=== PATIENT | female | born 1990 | race Caucasian/White ===

== ENCOUNTER 2016-02-26 03:56 | Inpatient (IN) ==
[2016-02-26] MEDS ORDERED: Metoclopramide 10 MG/2 ML VIAL IVP PRN (04:17)
[2016-02-26] MEDS ORDERED: Naloxone 0.4 MG/ML INJ IVP PRN (04:17)
[2016-02-26] MEDS ORDERED: Famotidine 20 MG/2 ML VIAL IVP PRN (04:17)
[2016-02-26] MEDS ORDERED: Ondansetron 4 MG/2 ML VIAL IVP PRN (04:17)
[2016-02-26 05:01] LABS: Basophils % 0.3 %; Eosinophils # 0.2 K/mcL (0.0-0.6); Eosinophils % 1.4 %; Hemoglobin 12.8 g/dL (11.5-15.4); Immature Granulocytes % 0.4 % (0-4); Lymphocytes % 26.5 %; Mean Corpuscular HGB Conc 35.6 g/dL (31.6-35.5); Mean Corpuscular Volume 95.5 fL (83.0-100.0); Monocytes # 0.6 K/mcL (0.0-1.3); Monocytes % 4.9 %; Neutrophils # 7.5 K/mcL (1.6-8.9); Platelet Count 148 K/mcL (140-400); Red Blood Count 3.77 M/mcL (3.82-4.97); Red Cell Distribution Width 12.9 % (11.5-14.5); Segmented Neutrophils % 66.5 %
[2016-02-26] MEDS ORDERED: miSOPROStol 25 MCG TABLET VG SCH (05:30)
[2016-02-26] MEDS ORDERED: *HR* Ropivacaine/PF 0.2% 10 ML AMPUL EP ONE (07:58)
[2016-02-26] MEDS ORDERED: *HR* FentaNYL (PF) 100 MCG/2 ML VIAL EP ONE (07:58)
[2016-02-26] MEDS ORDERED: EPHEDrine 50 MG/ML VIAL IVP PRN (07:58)
[2016-02-26] MEDS ORDERED: Ringers Solution, Lactated 500 ML IVC ONE (07:58)
[2016-02-26] MEDS ORDERED: Epidural Premix (fent/bupiv) 110 ML EP SCH (08:00)
--- NOTE | 2016-02-26 08:00 | Anesthesia Evaluation PreOp ---
Date of Encounter: 02/26/16 Time of Encounter: 07:55 - Past History Planned Operation: Labor Epidural Cardiac History: Denies any Significant Hx Pulmonary History: Denies Any Significant HX GEAR HOBBER History: Denies Any Significant HX, Other (Scoliosis) Other Medical History: Denies Any Significant HX Anesthesia History: No Prior Anesthetic Complications : Yes Alcohol Use: none Drug use: marijuana Medications and Allergies Plm818/Iron Fumarate/FA/Dss [ 19 Tablet] 1 tab PO DAILY 02/21/16 [ History] Allergies Penicillins Allergy (Verified 02/21/16 19:24) Hives - Meds/Allergy Pre-op Review Medications Reviewed: Yes Allergies Reviewed: Yes Beta Blockers on Current Med List: No Anesthesia Results - Labs 02/26/16 04:55 Anesthesia Exam Height: 1.63m Weight: 76.5kg Pain Scale: 6 Pain Scale Used: Numeric (1 - 10) - HEENT Pupil (Motor): Pupils equal Mallampati: II Teeth: Normal Oral Opening: Greater than 3 - GEAR HOBBER LOC: Oriented GEAR HOBBER Motor: Normal RUE, Normal LUE, Normal RLE, Normal LLE, Normal Face GEAR HOBBER Sensory: Normal: RUE, LUE, RLE, LLE, Face - Cardiac Rhythm: Regular Murmur: None JVD: No Carotid Bruit: No - Pulmonary Breath Sounds: bilateral Clear Respiratory Effort: Symmetrical Anesthesia Assess/Plan ASA Score: 2 Modified Andrew Scale for Level of Consciousness: Cooperative, oriented, and tranquil Anesthetic Plan: Regional Monitoring Plan: Standard Monitors
[2016-02-26] MEDS ORDERED: *HR* Ropivacaine/PF 0.2% 10 ML AMPUL ONE ×4 (08:01→19:53)
[2016-02-26] MEDS ORDERED: Epidural Premix (fent/bupiv) 110 ML EP ONE ×2 (08:01→15:30)
[2016-02-26] MEDS ORDERED: *HR* FentaNYL (PF) 100 MCG/2 ML VIAL ONE ×4 (08:01→19:53)
[2016-02-26] MEDS: Ringers Solution, Lactated 1,000 ML IVC SCH ×2 (08:02→16:13)
--- NOTE | 2016-02-26 08:59 | Anesthesia Procedures ---
Date of Encounter: 02/26/16 Time of Encounter: 08:04 Procedures: Anesthesia - Epidural/Spinal Patient ID/Chart reviewed: Yes Patient examined: Yes OB Eval: Gestational age: 39.1 OB Eval: : 1 OB Eval: Hx Para: 0 OB Eval: Contractions: Non-stressed pattern Consent Obtained: Yes Supplemental Oxygen: None/Room Air Site Prep: Aseptic Technique, Sterile prep and drape, 0.5% Chlorhexidine/Alcohol Patient position: upright Local Anesthetic: Lidocaine 1% Amount of Local Anesthetic used: 2 Touhy Needle Gauge: 18 Touhy Needle Depth (cm): 7 Catheter Depth at Skin (cm): 12 Test Dose (1.5% Lido + Epi): Volume given (mls): 4 Test Dose Result: Negative Loading Dose: Fentanyl (mcg): 100 Loading Dose: Other: Ropivacaine 0.2% 10mL Loading Dose Administered: Thru Catheter Infusion Med: 0.125% Bupivacaine w/ 2 mcg/ml Fentanyl Infusion Rate (mls/hr): 14 (Bolus 4mL q15min; max 3/hr) Catheter Secured in Place: Tegaderm, Tape Interspace Used: L3-L4 Loss of Resistance (TERRY): Yes Blood: No CSF: No Paresthesia: No Procedure: x1 attempt. Catheter without difficulty. Patient tolerated procedure well. Vitals + FHT's: VSS and FHR stable throughout procedure. See nursing documentation.
--- NOTE | 2016-02-26 09:18 | OB/GYN History & Physical ---
Date of Encounter: 02/26/16 Time of Encounter: 09:16 Assessment and Plan (1) Elective induction of labor planned Current visit: Yes Status: Resolved cytotec given @ 0530hrs, will AROM and allow labor to progress, pitocin ok if needed, epidural ok, cont monitoring strip History of Present Illness HPI: Ms. Ewing is a 25 year old female @ 39+0 weeks who presented as an elective IOL. No LOF, VB or ctxs, feels good FM, GBS neg. Past Med Surg Social Fam HX - Past Medical History Medical history: no medical history Psychiatric history: no psych history - Social History Smoking Status: Current every day smoker Packs per day: 5 Smokeless Tobacco Status: No Alcohol use: none Drug use: marijuana - Family History Mother Adopted: No Family Member Ethnicity: Non- Living Status: Still Living Hx Family Cardiac Disorders: No Hx Family Respiratory Disorders: No Hx Family Cancer: No Hx Family GI Disorders: No Hx Family Genitourinary Disorders: No Hx Family Endocrine Disorder: No Hx Family Musculoskeletal Disorders: No Hx Family Neuromuscular Disorders: No Hx Family Neurologic Disorders: No Hx Family HEENT Disorders: No Hx Family Autoimmune Disorders: No Hx Family Reproductive Disorders: No Hx Family Psychosocial Disorders: No Hx Family Medical Disorders: No Obstetrical History - Pregnancies : 1 Medications and Allergies Hgm990/Iron Fumarate/FA/Dss [ 19 Tablet] 1 tab PO DAILY 02/21/16 [ History] Allergies Penicillins Allergy (Verified 02/21/16 19:24) Hives Review of System OB All systems PM: reviewed and no additional remarkable complaints except as stated Exam - Constitutional Constitutional: well developed - HEENT HEENT: PERRL - Neck Neck exam: normal inspection - Lungs Respiratory exam: CTAB - Cardiovascular Cardiovascular exam: RRR - Abdomen Abdomen: Present: gravid - Extremities Extremities exam: warm - Cervix Dilation: 4 Effacement: 70 Station: -2 Results Result Diagrams: 02/26/16 04:55 Abnormal lab results WBC 11.2 K/mcL (4.3-11.1) H 02/26/16 04:55 RBC 3.77 M/mcL (3.82-4.97) L 02/26/16 04:55 MCH 34.0 pg (28.0-33.3) H 02/26/16 04:55 MCHC 35.6 g/dL (31.6-35.5) H 02/26/16 04:55 All other labs normal. - VTE Reasons for not Prescribing Prophylaxis: Treatment not Indicated - Low risk for VTE
[2016-02-26] MEDS ORDERED: Oxytocin 20 units/ LR 1000 mL 20 UNIT/1,000 ML BAG IVC SCH (10:42)
--- NOTE | 2016-02-26 13:22 | OB Labor Progress Note ---
Date of Encounter: 02/26/16 Time of Encounter: 13:14 Labor Progress Note - Subjective Subjective: patient comfortable - Vital Signs Vital Signs: VSS - Cervix Cervix: 6-7cm - Heart Tones Heart Tones: FHT CAT 1 - [place]: Q2 - Plan Plan: cont to allow labor to progress, cont monitoring strip, Anticipate
--- NOTE | 2016-02-26 16:09 | OB Labor Progress Note ---
Date of Encounter: 02/26/16 Time of Encounter: 16:08 Labor Progress Note - Subjective Subjective: patient continues to do well - Vital Signs Vital Signs: VSS - Cervix Cervix: 7-8cm - Heart Tones Heart Tones: FHT CAT 1 - [place]: Q1-2 - Plan Plan: allow to progress, cont monitoring tracing
--- NOTE | 2016-02-26 17:14 | OB Labor Progress Note ---
Date of Encounter: 02/26/16 Time of Encounter: 17:12 Labor Progress Note - Subjective Subjective: patient doing well, AROM'ed - Vital Signs Vital Signs: VSS - Cervix Cervix: 8cm/0 station - Heart Tones Heart Tones: 125/mod carly/+accels, no decels - [place]: Q1-2 - Plan Plan: allow to labor down, cont monitoring strip
[2016-02-26] MEDS ORDERED: Lidocaine 1% 20 ML MDV ONE (19:16)
--- NOTE | 2016-02-26 22:28 | OB/GYN Procedure Note ---
Delivery - Delivery Date: 02/26/16 Provider: Manuelito Márquez Intrapartum events: none Delivery induction: oxytocin, misoprostol Delivery augmentation: rupture of membranes Delivery monitor: external FHT Anesthesia: epidural Estimated Blood Loss: 200 - Repair Episiotomy: none Laceration Description: Periurethral - Complications Delivery complications: none - Disposition Mom disposition: stable in LDR [place] disposition: taken to nursery - Comments Comments: 25 y/o @ 39+1 weeks delivered a viable male infant via VAVD 2/2 maternal exhaustion. Kiwi vacuum was used, station was +3 , no pop offs, infant delivered ROHINI @ 2156, 3 VC. Placenta delivered @2205. APGARs 8/9, EBL 200. Periurethral tears repaired with 3-0 vicryl. Mother and stable.
[2016-02-27] MEDS ORDERED: Rho Immune Globulin 1,500 UNIT SYRINGE IM PRN (00:53)
[2016-02-27] MEDS ORDERED: Acetaminophen 325 MG TABLET PO PRN (00:53)
[2016-02-27] MEDS ORDERED: Oxytocin 20 units/ LR 1000 mL 20 UNIT/1,000 ML BAG IV SCH (00:53)
[2016-02-27] MEDS ORDERED: Measles/Mumps/Rubella Vacc 0.5 ML VIAL SQ PRN (00:53)
[2016-02-27] MEDS ORDERED: Ibuprofen 600 MG TABLET PO PRN (00:53)
[2016-02-27 05:17] LABS: Basophils % 0.2 %; Eosinophils % 0.2 %; Hematocrit 31.8 % (35.3-44.9); Hemoglobin 11.3 g/dL (11.5-15.4); Immature Granulocytes % 0.4 % (0-4); Lymphocytes # 1.8 K/mcL (0.6-4.6); Lymphocytes % 13.2 %; Mean Corpuscular HGB Conc 35.5 g/dL (31.6-35.5); Mean Corpuscular Volume 95.8 fL (83.0-100.0); Mean Platelet Volume 11.5 fL (9.4-12.4); Monocytes # 0.6 K/mcL (0.0-1.3); Monocytes % 4.3 %; Neutrophils # 10.8 K/mcL (1.6-8.9); Platelet Count 143 K/mcL (140-400); Red Blood Count 3.32 M/mcL (3.82-4.97); Red Cell Distribution Width 12.7 % (11.5-14.5); Segmented Neutrophils % 81.7 %
--- NOTE | 2016-02-27 08:24 | Discharge Summary ---
Date of Encounter: 02/27/16 Time of Encounter: 08:21 - Discharge Diagnosis (1) Vaginal delivery Priority: Primary Status: Acute Comments: Continue routine care discharge to guest today-infant 3 day hold (2) Breast feeding status of mother Priority: Secondary Status: Acute Comments: support - Discharge Medications Prescriptions: Ibuprofen [Motrin] 600 mg PO Q6HR PRN #60 tablet PRN Reason: Cramping Breast Pump [BREAST PUMP] 1 each .ROUTE AD #1 each Home Medications: Gup744/Iron Fumarate/FA/Dss [ 19 Tablet] 1 tab PO DAILY 02/21/16 [ History] Breast Pump [BREAST PUMP] 1 each .ROUTE AD #1 each 02/27/16 [Rx] Ibuprofen [Motrin] 600 mg PO Q6HR PRN #60 tablet 02/27/16 [Rx] Allergies/Adverse Reactions: Allergies Penicillins Allergy (Verified 02/21/16 19:24) Hives Data Procedures and tests throughout hospitalization: Laboratory Tests 02/26/16 02/27/16 04:55 04:47 WBC 11.2 H 13.3 H RBC 3.77 L 3.32 L Hgb 12.8 11.3 L D Hct 36.0 31.8 L MCV 95.5 95.8 MCH 34.0 H 34.0 H MCHC 35.6 H 35.5 RDW 12.9 12.7 Plt Count 148 143 MPV 11.0 11.5 Immature Gran % 0.4 0.4 Seg Neutrophils % 66.5 81.7 Lymphocytes % 26.5 13.2 Monocytes % 4.9 4.3 Eosinophils % 1.4 0.2 Basophils % 0.3 0.2 Neutrophils # 7.5 10.8 H Lymphocytes # 3.0 1.8 Monocytes # 0.6 0.6 Eosinophils # 0.2 0.0 Basophils # 0.0 0.0 Labs on day of discharge: Labs from last 24 hours 02/27/16 04:47 WBC 13.3 H RBC 3.32 L Hgb 11.3 L D Hct 31.8 L MCV 95.8 MCH 34.0 H MCHC 35.5 RDW 12.7 Plt Count 143 MPV 11.5 Immature Gran % 0.4 Seg Neutrophils % 81.7 Lymphocytes % 13.2 Monocytes % 4.3 Eosinophils % 0.2 Basophils % 0.2 Neutrophils # 10.8 H Lymphocytes # 1.8 Monocytes # 0.6 Eosinophils # 0.0 Basophils # 0.0 Date of admission: 02/26/16 03:56 Primary care physician: PCP LIZZIE Consults: 02/27/16 00:53 Consult to Bench Assembly Inspector [CONS] Routine Comment: Vaginal delivery, consult needed Consult to Client Service And Consulting Manager [CONS] Routine Reason for SW Consult: marijuana use during Discharging clinician: Ashley Amaro Anticipated date of discharge: 02/27/16 - Patient Status Disposition: Home, Self-Care Condition: Good Functional capacity at discharge: independent ambulation - Discharge Instructions Follow Up With: LIZZIE,PCP [Primary Care Provider] - Casey Hoover MD [Partnered Physician] - - Diet and Activity Activity: increase activity as tolerated Diet: regular diet Hospital Course Delivery: Episiotomy: none Other procedures: none complications: none Discharge diagnosis: IUP at term delivered baby: male (breast feeding) Time Attestation: Total time spent providing and/or coordinating discharge services: Time Spent: Less than 30 minutes Exam - Constitutional Vitals: Temp Pulse Resp BP Pulse Ox 98.3 F 93 78 117/79 16 L 02/27/16 03:55 02/27/16 01:30 02/27/16 03:55 02/27/16 03:55 02/27/16 03:55 General appearance IM: A&O X 3, pleasant, answers questions appropriately - Respiratory Respiratory exam: Present: CTAB - Cardiovascular Cardiovascular exam IM: Present: RRR, +S1, +S2 - GI/Abdominal GI/Abdominal exam IM: normal bowel sounds - Uterine Tone: Firm Uterus Position: 1 Finger Below Umbilicus, Midline - Extremities Exam Extremities exam IM: Present: normal capillary refill, normal inspection - Neurological Exam Neurological exam: oriented X3, reflexes normal
[2016-02-27 08:56] VITALS: BP 106/70
[2016-02-27] MEDS ORDERED: Prenatal Vit/FA 1 EACH TABLET PO SCH (09:00)
== END 2016-02-27 11:20 | disposition home or self-care (01) | DRG 560 ==
LOC: 1NENULAB 03:56 → 1NENUOBS 02-27 00:33
PROVIDERS: ADMIT Student in an Organized Health Care Education/Training Program; ATTEND Student in an Organized Health Care Education/Training Program

== ENCOUNTER → 2017-06-03 11:30 | Observation (INO) ==
[2017-06-03 08:38] LABS: Amphetamine Screen,Urine Negative ng/mL (Cutoff=1000); Barbiturate Screen,Urine Negative ng/mL (Cutoff=200); Benzodiazepines Screen,Urine Negative ng/mL (Cutoff=200); Cannabinoid Screen,Urine Positive ng/mL (Cutoff = 50); Cocaine Screen,Urine Negative ng/mL (Cutoff= 300); Opiate Screen,Urine Negative ng/mL (Cutoff=300); Phencyclidine Screen,Urine Negative ng/mL (Cutoff=25)
[2017-06-03 09:06] LABS: Basophils % 0.3 %; Eosinophils # 0.1 K/mcL (0.0-0.6); Eosinophils % 0.5 %; Hematocrit 38.1 % (35.3-44.9); Hemoglobin 13.6 g/dL (11.5-15.4); Immature Granulocytes % 0.7 % (0-4); Lymphocytes # 2.1 K/mcL (0.6-4.6); Mean Corpuscular HGB Conc 35.7 g/dL (31.6-35.5); Mean Corpuscular Hemoglobin 34.5 pg (28.0-33.3); Mean Corpuscular Volume 96.7 fL (83.0-100.0); Mean Platelet Volume 11.3 fL (9.4-12.4); Monocytes # 0.5 K/mcL (0.0-1.3); Monocytes % 3.4 %; Neutrophils # 12.1 K/mcL (1.6-8.9); Platelet Count 174 K/mcL (140-400); Red Blood Count 3.94 M/mcL (3.82-4.97); Red Cell Distribution Width 13.3 % (11.5-14.5); Segmented Neutrophils % 81.1 %
--- NOTE | 2017-06-03 10:49 | OB/GYN Progress Note ---
Date of Encounter: 06/03/17 Time of Encounter: 10:47 - Assessment and Plan (1) 37 weeks gestation of Current Visit: Yes Status: Acute (2) Uterine contractions Current Visit: Yes Status: Acute Pt with stong contractions on admission. given nubain. Serial cervical exams remain unchanged. Pt requesting to be discharged home. Discharged home with when to return precautions. Subjective - Subjective Interval history: 37+0 presents to [facility] for labor evaluation. Contractions started earlier this AM and became more intense. Reports good movement, denies vaginal bleeding or leaking of fluid. Antepartum ROS: movement normal, contractions, no loss of fluid, no vaginal bleeding Objective - Vital Signs Vital Signs: Intake and Output 06/02/17 06/03/17 06/03/17 23:59 07:59 15:59 Other: Weight 73.5 kg Patient Weight 06/03/17 23:59 Weight 73.5 kg - Exam FHR: auscultation normal FHR comments: Baseline 120 Abdomen: Present: normal appearance, soft, gravid Cervical dilation: 590/0 - Labs Labs: Abnormal lab results WBC 14.9 K/mcL (4.3-11.1) H 06/03/17 08:33 MCH 34.5 pg (28.0-33.3) H 06/03/17 08:33 MCHC 35.7 g/dL (31.6-35.5) H 06/03/17 08:33 Neutrophils # 12.1 K/mcL (1.6-8.9) H 06/03/17 08:33 U Marijuana (THC) Screen Positive ng/mL (Cutoff = 50) H 06/03/17 07:30
[~2017-06-03 11:30] MED LIST: *HR* Nalbuphine 10 MG/ML AMPUL IV PRN
== END | disposition home or self-care (01) ==
LOC: 1NENULAB
PROVIDERS: ADMIT Obstetrics & Gynecology; ATTEND Obstetrics & Gynecology

== ENCOUNTER 2017-06-03 19:55 | Inpatient (IN) ==
--- NOTE | 2017-06-03 19:07 | Anesthesia Evaluation PreOp ---
Date of Encounter: 06/03/17 Time of Encounter: 19:04 - Past History Planned Operation: vaginal del, 37wk labor Cardiac History: Denies any Significant Hx Pulmonary History: Smoker SAP FUNCTIONAL ANALYST History: Denies Any Significant HX Other Medical History: Other (scoliosis no radiculopathy reported.) Anesthesia History: No Prior Anesthetic Complications, Past Anesthesia Alcohol Use: none Drug use: none Medications and Allergies Tyf432/Iron Fumarate/FA/Dss [ 19 Tablet] 1 tab PO DAILY 02/21/16 [ History] 3 Allergy/AdvReac Type Severity Reaction Status Date / Time Penicillins Allergy Hives Verified 01/30/17 12:49 Anesthesia Exam - HEENT Pupil (Motor): Pupils equal Mallampati: II Teeth: Normal Oral Opening: Greater than 3 - SAP FUNCTIONAL ANALYST LOC: Oriented SAP FUNCTIONAL ANALYST Motor: Normal RUE, Normal LUE, Normal RLE, Normal LLE, Normal Face SAP FUNCTIONAL ANALYST Sensory: Normal: RUE, LUE, RLE, LLE, Face - Cardiac Rhythm: Regular Murmur: None - Pulmonary Breath Sounds: bilateral Clear Respiratory Effort: Symmetrical Anesthesia Assess/Plan ASA Score: 2 Modified [place] Scale for Level of Consciousness: Cooperative, oriented, and tranquil Anesthetic Plan: General, Regional Monitoring Plan: Standard Monitors Recovery Plan: PACU
[~2017-06-03 19:55] MED LIST changes: -*HR* Nalbuphine 10 MG/ML AMPUL IV PRN; +EPHEDrine 50 MG/ML VIAL IVP PRN; +Epidural Premix (fent/bupiv) 110 ML EP ONE; +Epidural Premix (fent/bupiv) 110 ML EP SCH; +Famotidine 20 MG/2 ML VIAL IVP PRN; +Lidocaine 1% 20 ML MDV INFILT PRN; +Naloxone 0.4 MG/ML INJ IVP PRN; +Ringers Solution, Lactated 2,000 ML ONE
[2017-06-03] MEDS ORDERED: Oxytocin 20 units/ LR 1000 mL 20 UNIT/1,000 ML BAG IVC ONE (19:56)
[2017-06-03] MEDS ORDERED: Ringers Solution, Lactated 1,000 ML IVC SCH (20:00)
--- NOTE | 2017-06-03 20:13 | OB/GYN History & Physical ---
Date of Encounter: 06/03/17 Time of Encounter: 20:03 Assessment and Plan (1) Active labor Current visit: Yes Status: Acute Admit to labor and delivery Vancomycin for GBS unknown Nubain and epidural as desired Anticipate (2) 37 weeks gestation of Current visit: No Status: Acute History of Present Illness HPI: Ms. August is a 27 year old female 37+0 weeks gestation presents to triage with complaints of contractions. Patient was seen in triage earlier this afternoon in the discharged home. Patient has returned stating that contractions have increased. Reports good movement, denies vaginal bleeding or leaking of fluid. located by velamentous cord insertion. Labs: O+, rubella and varicella immune, GBS unknown, all other serologies negative Past Med Surg Social Fam HX - Past Medical History Medical history: no medical history Psychiatric history: no psych history - Past Surgical History Surgical History: other - Social History Smoking Status: Current every day smoker Smokeless Tobacco Status: No Alcohol use: none Drug use: none - Family History Mother Adopted: No Family Member Ethnicity: Non- Living Status: Still Living Hx Family Cardiac Disorders: No Hx Family Respiratory Disorders: No Hx Family Cancer: No Hx Family GI Disorders: No Hx Family Genitourinary Disorders: No Hx Family Endocrine Disorder: No Hx Family Musculoskeletal Disorders: No Hx Family Neuromuscular Disorders: No Hx Family Neurologic Disorders: No Hx Family HEENT Disorders: No Hx Family Autoimmune Disorders: No Hx Family Reproductive Disorders: No Hx Family Psychosocial Disorders: No Hx Family Medical Disorders: No Obstetrical History - Pregnancies : 2 Para: 1 Term: 1 : 0 Ab's: 0 Livin Medications and Allergies Ven520/Iron Fumarate/FA/Dss [ 19 Tablet] 1 tab PO DAILY 02/21/16 [ History] 3 Allergy/AdvReac Type Severity Reaction Status Date / Time Penicillins Allergy Hives Verified 01/30/17 12:49 Exam - Constitutional Constitutional: well developed, well nourished, no acute distress, average body habitus - Neck Neck exam: full ROM - Lungs Respiratory exam: CTAB - Cardiovascular Cardiovascular exam: RRR - Abdomen Abdomen: Present: gravid, non tender - Vagina Vagina: Present: normal moisture - Cervix Dilation: 7 (PER rn) - Uterus Uterus exam: Present: normal size, normal contour Results All other labs normal. - VTE Reasons for not Prescribing Prophylaxis: Treatment not Indicated - Low risk for VTE
--- NOTE | 2017-06-03 20:29 | Anesthesia Procedures ---
Date of Encounter: 06/03/17 Time of Encounter: 20:11 Procedures: Anesthesia - Epidural/Spinal Patient ID/Chart reviewed: Yes Patient examined: Yes OB Eval: Gestational age: term OB Eval: : 2 OB Eval: Hx Para: 1 OB Eval: Dilated at (cm): 7 OB Eval: Contractions: Non-stressed pattern Consent Obtained: Yes Supplemental Oxygen: None/Room Air Site Prep: Aseptic Technique, Sterile prep and drape, 0.5% Chlorhexidine/Alcohol Patient position: upright Local Anesthetic: Lidocaine 1% Amount of Local Anesthetic used: 2 Touhy Needle Gauge: 18 Touhy Needle Depth (cm): 7 Catheter Depth at Skin (cm): 11 Test Dose (1.5% Lido + Epi): Volume given (mls): 3 Test Dose Result: Negative Loading Dose: Other: 10ml from solution Loading Dose Administered: Thru Catheter Infusion Med: 0.125% Bupivacaine w/ 2 mcg/ml Fentanyl Infusion Rate (mls/hr): [address]: Tegaderm, Tape Interspace Used: L4-L5 Loss of Resistance (TERRY): Yes (saline) Blood: No CSF: No Paresthesia: No Procedure: vss though out procedure, FHR stable per RN's
[2017-06-04] MEDS ORDERED: Epidural Premix (fent/bupiv) 110 ML EP ONE (01:43)
--- NOTE | 2017-06-04 02:12 | OB Labor Progress Note ---
Date of Encounter: 06/04/17 Time of Encounter: 02:10 Labor Progress Note - Subjective Subjective: Pt comfortable with epidural - Cervix Cervix: 8/90/0 - Heart Tones Heart Tones: 145/moderate/+accels/-decels - [place]: q2 - Interventions Interventions: AROM for clear fluid - Plan Plan: Continue expectant management. Anticipate
[2017-06-04] MEDS ORDERED: Oxytocin 20 units/ LR 1000 mL 20 UNIT/1,000 ML BAG IVC SCH ×2 (04:00→08:00)
[2017-06-04] MEDS ORDERED: *HR* Ropivacaine/PF 0.5% 20 ML VIAL ONE (05:21)
[2017-06-04] MEDS ORDERED: *HR* FentaNYL (PF) 100 MCG/2 ML VIAL ONE (05:29)
[2017-06-04] MEDS ORDERED: *HR* Oxytocin 10 UNIT/ML VIAL IM ONE (05:40)
--- NOTE | 2017-06-04 05:55 | OB/GYN Procedure Note ---
Delivery - Delivery Date: 06/04/17 Provider: Sintia Hansen Intrapartum events: none Delivery induction: none Delivery augmentation: rupture of membranes Delivery monitor: external FHT, external uterine Anesthesia: epidural Estimated Blood Loss: 400 - (s) Infant A Delivery Date: 06/04/17 Delivery Time: 05:30 Presentation: vertex Position: OA Route of delivery: Gender: Male Viability: Viable Pounds: 6 Ounces: 11 Weight Gram: 3035 kg at 1 minute: 8 at 5 mins: 9 Shoulder Dystocia: not encountered Specimens collected: cord blood Placenta: spontaneous Cord: 3 umbilical vessels - Repair Episiotomy: none Laceration Description: None - Complications Delivery complications: none Delivery comments: Admitted in spontaneous labor, progressed to compete, maternal bearing down efforts to of liveborn male, vertex delivered OA, shoulders and body easily followed, no nuchal cord or shoulder dystocia encountered. Vigorous placed on maternal abdomen, APGARS 8/9. Placenta delivered spontaneously,(garnica ) and complete upon inspection. No perineal lacerations noted. mother and infant left bonding skin to skin. EBL 400 - Disposition Mom disposition: stable in LDR [place] disposition: stable in LDR
--- NOTE | 2017-06-04 06:26 | Anesthesia Progress Note ---
Date of Encounter: 06/04/17 Time of Encounter: 05:26 Anesthesia Note - Note Note: 06/04/17 06:24 pain reported, bolus with 4ml lido with epi, 4ml 0.5% rop, 100mcg fent, in 5ml INC. vss though out, FHR stable per RN's at BS.
[2017-06-04] MEDS ORDERED: Acetaminophen 325 MG TABLET PO PRN (07:47)
[2017-06-04] MEDS ORDERED: Prenatal Vit/FA 1 EACH TABLET PO SCH (09:00)
[2017-06-05] MEDS: Ibuprofen 600 MG TABLET PO PRN ×2 (03:51→10:10)
[2017-06-05 08:22] VITALS: BP 107/72
--- NOTE | 2017-06-05 09:14 | Discharge Summary ---
Date of Encounter: 06/05/17 Time of Encounter: 09:12 - Discharge Diagnosis (1) Breast feeding status of mother Priority: Secondary Status: Acute Comments: support prn (2) Vaginal delivery Priority: Primary Status: Acute Comments: Continue routine care discharge to guest today follow up in 4-[address] Hoover - Discharge Medications Prescriptions: Ibuprofen [Motrin] 600 mg PO Q6HR PRN #60 tablet PRN Reason: Cramping Home Medications: Iuz136/Iron Fumarate/FA/Dss [ 19 Tablet] 1 tab PO DAILY 02/21/16 [ History] Ibuprofen [Motrin] 600 mg PO Q6HR PRN #60 tablet 06/05/17 [Rx] Vit/FA 1 each PO DAILY tablet 06/05/17 [Rx] Allergies/Adverse Reactions: 3 Allergy/AdvReac Type Severity Reaction Status Date / Time Penicillins Allergy Hives Verified 01/30/17 12:49 Date of admission: 06/03/17 19:55 Consults: 06/04/17 07:47 Consult to Under Cutter [CONS] Routine Comment: Vaginal delivery, consult needed Discharging clinician: Ashley Amaro Anticipated date of discharge: 06/05/17 - Patient Status Disposition: Home, Self-Care Condition: Good Functional capacity at discharge: independent ambulation - Discharge Instructions Follow Up With: Casey Hoover MD [Partnered Physician] - - Diet and Activity Activity: increase activity as tolerated Diet: regular diet Hospital Course Reason for admission: active labor Delivery: Episiotomy: none Other procedures: none complications: none Discharge diagnosis: IUP at term delivered baby: male (breast feeding) Time Attestation: Total time spent providing and/or coordinating discharge services: Time Spent: Less than 30 minutes Exam - Constitutional Vitals: Temp Pulse Resp BP Pulse Ox 98.0 F 86 18 107/72 98 06/05/17 08:21 06/05/17 08:21 06/05/17 08:21 06/05/17 08:21 06/05/17 08:21 General appearance IM: A&O X 3, pleasant, answers questions appropriately - Respiratory Respiratory exam: Present: CTAB - Cardiovascular Cardiovascular exam IM: Present: RRR, +S1, +S2 - GI/Abdominal GI/Abdominal exam IM: normal bowel sounds - Uterine Tone: Firm Uterus Position: 1 Finger Below Umbilicus, Midline - Extremities Exam Extremities exam IM: Present: full ROM, normal capillary refill, normal inspection - Neurological Exam Neurological exam: alert, oriented X3, reflexes normal
== END 2017-06-05 13:54 | disposition home or self-care (01) | DRG 560 ==
LOC: 1NENULAB → 1NENUOBS 06-04 08:40
PROVIDERS: ADMIT Obstetrics & Gynecology; ATTEND Obstetrics & Gynecology